=== PATIENT | male | born 1995 | race Caucasian/White ===

== ENCOUNTER 2021-09-12 16:33 | Emergency (ER) | payer OTHER ==
[2021-09-12] MEDS ORDERED: HYDROCODON-ACE1 EAC4 PO (18:12)
== END 2021-09-12 18:49 | disposition home or self-care (01) ==
LOC: ER1 16:33
DX: S43.102A Unspecified dislocation of left acromioclavicular joint, initial encounter (principal); S20.412A Abrasion of left back wall of thorax, initial encounter; F17.200 Nicotine dependence, unspecified, uncomplicated; V86.99XA Unspecified occupant of other special all-terrain or other off-road motor vehicle injured in nontraffic accident, initial encounter
CPT/HCPCS: 71046; 73030; 73060; 99283